=== PATIENT | female | born 1955 | race Caucasian/White ===

== ENCOUNTER 2017-04-29 19:00 | Emergency (ER) | payer BC ==
[~2017-04-29] VITALS: Ht 163.8 cm; Wt 59.5 kg
[~2017-04-29 19:00] MED LIST: AMLODIPINE5 MG PO; HYDROCHLORO25 MG/TAB PO; LIPITOR40 M1 PO; METFORMIN500 M2 PO; ZESTRIL40 MG PO
[2017-04-29] MEDS ORDERED: ASPIRIN 81 LOW81 MG PO (19:27)
[2017-04-29] MEDS ORDERED: FISH OIL1000 MG PO (19:27)
[2017-04-29 19:57] LABS: HEMATOCRIT 39.3 % (37.0-47.0); HEMOGLOBIN 13.3 g/dl (12.0-16.0); IMMATURE GRANULOCYTES 0.2 % (0.0-1.0); MEAN CELL VOLUME 91.8 fL CALC (80.0-100.0); MEAN CORPUSCULAR HGB 31.1 pG CALC (26.0-32.0); MEAN CORPUSCULAR HGB CONC 33.8 g/L CALC (32.0-36.0); NEUT# 4.82 thou/uL (2.00-7.15); RED BLOOD COUNT 4.28 mill/uL (4.20-5.60); RED CELL DISTRI WIDTH 12.6 % (11.5-15.5)
[2017-04-29 19:59] LABS: URINE BILIRUBIN - DIPSTICK NEGATIVE (NEGATIVE); URINE BLOOD DIPSTICK NEGATIVE (NEGATIVE); URINE CLARITY CLEAR; URINE COLOR YELLOW; URINE GLUCOSE - DIPSTICK NEGATIVE (NEGATIVE); URINE KETONE NEGATIVE (NEGATIVE); URINE LEUK ESTERASE NEGATIVE (NEGATIVE); URINE NITRITE - DIPSTICK NEGATIVE (Negative); URINE PH 5.5 (4.5-8.0); URINE PROTEIN - DIPSTICK NEGATIVE (NEG-TRACE); URINE SPECIFIC GRAVITY <=1.005; URINE UROBILINOGEN - DIPSTICK 0.2 E.U./dL (0.2)
[2017-04-29 20:25] LABS: ALBUMIN 4.8 g/dL (3.2-5.0); ALKALINE PHOSPHATASE 100 u/l (38-126); AMYLASE 33 u/l (30-110); ANION GAP 17 (6-22 (CALC)); BILIRUBIN, TOTAL 0.8 mg/dL (0.0-1.4); BUN 18 mg/dL (8-23); BUN/CREATININE RATIO 17 (12-20 (CALC)); CALCIUM 10.4 mg/dL (8.4-10.2); CARBON DIOXIDE 28 mmol/l (22-30); CHLORIDE 102 mmol/l (95-108); CREATININE 1.1 mg/dL (0.5-1.0); GFR 50 ML/MIN (>=60 (CALC)); GFR FOR AFR.AMER. > 60 ML/MIN (>=60 (CALC)); GLUCOSE 85 mg/dL (82-115); LIPASE 114 u/l (23-300); POTASSIUM 4.5 mmol/l (3.5-5.1); SGOT/AST 25 u/l (9-36); SGPT/ALT 41 u/l (11-66); SODIUM 143 mmol/l (137-146); TOTAL PROTEIN 7.5 g/dL (6.3-8.2)
[2017-04-29 20:36] LABS: MYOGLOBIN 42 ng/mL (0 - 62)
[2017-04-29] MEDS ORDERED: ULTRAM50 M1 PO (23:18)
[2017-04-29] MEDS ORDERED: PREVACID30 M3 PO (23:18)
[2017-04-29] MEDS ORDERED: PROTONIX40 MG PO (23:18)
[2017-04-29] MEDS ORDERED: ZOFRAN ODT4 MG PO (23:20)
[2017-04-29 23:35] VITALS: BP 128/64
== END 2017-04-29 23:35 | disposition home or self-care (01) | DRG 392 ==
LOC: ED 19:00
PROVIDERS: Emergency Medicine
DX: R10.11 Right upper quadrant pain (principal); K29.70 Gastritis, unspecified, without bleeding; I10 Essential (primary) hypertension; E11.9 Type 2 diabetes mellitus without complications; E78.5 Hyperlipidemia, unspecified
CPT/HCPCS: Q9967; S0164

== ENCOUNTER 2018-08-30 09:55 | Emergency (ER) | payer OTHER, MEDICARE ==
[~2018-08-30] VITALS: Ht 163.8 cm; Wt 60.0 kg
[~2018-08-30 09:55] MED LIST changes: +ASPIRIN 81 LOW81 MG PO; +FISH OIL1000 MG PO; +OMEPRAZOLE20 MG PO; +PREVACID30 M3 PO; +PROTONIX40 MG PO; +ULTRAM50 M1 PO; +ZOFRAN ODT4 MG PO
[2018-08-30] MEDS ORDERED: TORADOL PO (12:25)
[2018-08-30 12:47] VITALS: BP 117/71
== END 2018-08-30 12:47 | disposition home or self-care (01) | DRG 563 ==
LOC: ED 09:55
DX: S66.912A Strain of unspecified muscle, fascia and tendon at wrist and hand level, left hand, initial encounter (principal); E11.9 Type 2 diabetes mellitus without complications; I10 Essential (primary) hypertension; E78.5 Hyperlipidemia, unspecified; W19.XXXA Unspecified fall, initial encounter; Y93.89 Activity, other specified; Y92.89 Other specified places as the place of occurrence of the external cause; Y99.0 Civilian activity done for income or pay

== ENCOUNTER 2020-05-26 07:36 | Day surgery (SDC) | payer MEDICARE ==
[~2020-05-26] VITALS: Ht 162.6 cm; Wt 63.5 kg
[~2020-05-26 07:36] MED LIST changes: +CLONIDINE0.1 MG PO; +DICLOFENAC SODI75 MG PO; +NORVASC5 M1 PO; +TORADOL PO; +VISION FORMULA1 TAB PO; +VITAMIN D PO
[2020-05-26 13:27] VITALS: BP 158/70
== END 2020-05-26 11:10 | disposition home or self-care (01) ==
LOC: ENDO 07:36 → ORM 10:15 → ENDO 11:10
PROVIDERS: ATTEND Surgery
PROC: 0DB78ZX Excision of Stomach, Pylorus, Via Natural or Artificial Opening Endoscopic, Diagnostic (ICD-10-PCS; principal; 2020-05-26)
DX: K29.70 Gastritis, unspecified, without bleeding (principal); Z20.828 Contact with and (suspected) exposure to other viral communicable diseases

== ENCOUNTER 2020-06-16 09:11 | Day surgery (SDC) | payer MEDICARE ==
[~2020-06-16] VITALS: Ht 162.6 cm; Wt 63.5 kg
[2020-06-16] MEDS ORDERED: PERCOCET 5/325M1 TAB PO (13:09)
[2020-06-16 14:55] VITALS: BP 130/60
== END 2020-06-16 15:16 | disposition home or self-care (01) ==
LOC: ORM 09:11
PROVIDERS: ATTEND Surgery
PROC: 0FT44ZZ Resection of Gallbladder, Percutaneous Endoscopic Approach (ICD-10-PCS; principal; 2020-06-16)
PROC: 0F5 Hepatobiliary System and Pancreas, Destruction (ICD-10-PCS; 2020-06-16)
DX: K81.1 Chronic cholecystitis (principal); K76.89 Other specified diseases of liver; I10 Essential (primary) hypertension; E11.9 Type 2 diabetes mellitus without complications; Z79.84 Long term (current) use of oral hypoglycemic drugs; Z20.828 Contact with and (suspected) exposure to other viral communicable diseases
CPT/HCPCS: J0131; J1100; J1610; Q9967

== ENCOUNTER 2021-02-04 08:52 | Observation (INO) | payer MEDICARE ==
[~2021-02-04 08:52] MED LIST changes: +PERCOCET 5/325M1 TAB PO
[2021-02-04 10:06] LABS: IMMATURE GRANULOCYTES 0.3 % (0.0-5.0); MEAN CELL VOLUME 92.7 fL CALC (80.0-100.0); MEAN CORPUSCULAR HGB 30.1 pG CALC (26.0-32.0); MEAN CORPUSCULAR HGB CONC 32.4 g/dL CAL (32.0-36.0); NEUT# 2.25 thou/uL (2.00-7.15); RED BLOOD COUNT 3.99 mill/uL (4.20-5.60); RED CELL DISTRI WIDTH 14.2 % (11.5-15.5)
[2021-02-04 10:33] LABS: ALBUMIN 4.2 g/dL (3.2-5.0); ALKALINE PHOSPHATASE 117 u/l (38-126); ANION GAP 14 (6-22 (CALC)); BILIRUBIN, TOTAL 0.5 mg/dL (0.0-1.4); BUN 10 mg/dL (8-23); BUN/CREATININE RATIO 11 (12-20 (CALC)); CARBON DIOXIDE 27 mmol/l (22-30); CHLORIDE 101 mmol/l (95-108); CREATININE 0.9 mg/dL (0.5-1.0); GFR > 60 ML/MIN (>=60 (CALC)); GFR FOR AFR.AMER. > 60 ML/MIN (>=60 (CALC)); POTASSIUM 4.2 mmol/l (3.5-5.1); SGOT/AST 28 u/l (9-36); SODIUM 138 mmol/l (137-146); TOTAL PROTEIN 7.2 g/dL (6.3-8.2)
[2021-02-04 11:42] LABS: ACT PARTIAL THROMBO TIME 27.8 SECONDS (20.0-32.5); PROTHROMBIN TIME 10.4 SECONDS (9.0-12.5)
[2021-02-04 15:10] VITALS: BP 116/48
[2021-02-04 19:00] VITALS: BP 145/61
[2021-02-05] VITALS: BP 110/50
[2021-02-05 04:30] VITALS: BP 139/55
[2021-02-05 05:38] LABS: HEMOGLOBIN 11.2 g/dl (12.0-16.0); MEAN CELL VOLUME 93.6 fL CALC (80.0-100.0); MEAN CORPUSCULAR HGB 29.9 pG CALC (26.0-32.0); NEUT# 2.2 thou/uL (2.00-7.15); RED BLOOD COUNT 3.74 mill/uL (4.20-5.60)
[2021-02-05 06:23] LABS: ALBUMIN 3.5 g/dL (3.2-5.0); ALKALINE PHOSPHATASE 93 u/l (38-126); ANION GAP 13 (6-22 (CALC)); BILIRUBIN, TOTAL 0.3 mg/dL (0.0-1.4); BUN 14 mg/dL (8-23); BUN/CREATININE RATIO 18 (12-20 (CALC)); C-REACTIVE PROTEIN < 0.5 mg/dL (0-0.9); CARBON DIOXIDE 26 mmol/l (22-30); CHLORIDE 105 mmol/l (95-108); CREATININE 0.8 mg/dL (0.5-1.0); GFR > 60 ML/MIN (>=60 (CALC)); GFR FOR AFR.AMER. > 60 ML/MIN (>=60 (CALC)); POTASSIUM 4.5 mmol/l (3.5-5.1); SGOT/AST 26 u/l (9-36); SODIUM 140 mmol/l (137-146); TOTAL PROTEIN 6.1 g/dL (6.3-8.2)
[2021-02-05 07:23] VITALS: BP 145/58
[2021-02-05] MEDS ORDERED: ZITHROMAX250 MG PO (10:30)
[2021-02-05] MEDS ORDERED: DECADRON6 MG PO (10:32)
[2021-02-05] MEDS ORDERED: OMNICEF300 M1 PO (10:32)
[2021-02-05] MEDS ORDERED: TAM75CAP PO (10:33)
[2021-02-05 10:48] VITALS: BP 141/66
== END 2021-02-05 15:52 | disposition home or self-care (01) ==
LOC: ED 08:52 → ED-I 13:17 → ED 13:27 → MS2 13:28
PROVIDERS: Nurse Practitioner; ADMIT Hospitalist; ATTEND Hospitalist
PROC: XW033E5 Introduction of Remdesivir Anti-infective into Peripheral Vein, Percutaneous Approach, New Technology Group 5 (ICD-10-PCS; principal; 2021-02-04)
DX: U07.1 COVID-19 (principal); J12.82 Pneumonia due to coronavirus disease 2019; J10.1 Influenza due to other identified influenza virus with other respiratory manifestations; R09.02 Hypoxemia; I10 Essential (primary) hypertension; E11.9 Type 2 diabetes mellitus without complications; E78.5 Hyperlipidemia, unspecified; K21.9 Gastro-esophageal reflux disease without esophagitis; Z79.84 Long term (current) use of oral hypoglycemic drugs
CPT/HCPCS: G0378; J1650; Q9967

== ENCOUNTER 2021-02-15 09:34 | Inpatient (IN) | payer MEDICARE ==
[~2021-02-15] VITALS: Ht 162.6 cm; Wt 58.0 kg
[~2021-02-15 09:34] MED LIST changes: +DECADRON6 MG PO; +OMNICEF300 M1 PO; +TAM75CAP PO; +ZITHROMAX250 MG PO
--- NOTE | 2021-02-15 09:45 | NUR ---
TO ROOM FOR TRIAGE
[2021-02-15 10:33] LABS: HEMATOCRIT 39.2 % (37.0-47.0); HEMOGLOBIN 12.7 g/dl (12.0-16.0); IMMATURE GRANULOCYTES 1.2 % (0.0-5.0); MEAN CELL VOLUME 90.3 fL CALC (80.0-100.0); MEAN CORPUSCULAR HGB 29.3 pG CALC (26.0-32.0); MEAN CORPUSCULAR HGB CONC 32.4 g/dL CAL (32.0-36.0); NEUT# 6.59 thou/uL (2.00-7.15); RED BLOOD COUNT 4.34 mill/uL (4.20-5.60); RED CELL DISTRI WIDTH 13.8 % (11.5-15.5)
[2021-02-15 10:42] LABS: PROTHROMBIN TIME 10.3 SECONDS (9.0-12.5)
[2021-02-15 10:43] LABS: ALBUMIN 3.4 g/dL (3.2-5.0); CREATININE 1.1 mg/dL (0.5-1.0); POTASSIUM 3.9 mmol/l (3.5-5.1); TOTAL PROTEIN 6.2 g/dL (6.3-8.2)
[2021-02-15 10:45] LABS: BILIRUBIN, TOTAL 1.1 mg/dL (0.0-1.4)
--- NOTE | 2021-02-15 11:00 | NUR ---
PT IS RESTING IN BED ON 2L OXYGEN NC, CALL LIGHT IN REACH
[2021-02-15 11:34] LABS: C-REACTIVE PROTEIN 8.8 mg/dL (0-0.9)
--- NOTE | 2021-02-15 12:00 | NUR ---
PT RESTING AWAITING RESULTS
--- NOTE | 2021-02-15 13:00 | NUR ---
PT ON 2LNC VSS AND NO COMPLAINTS
--- NOTE | 2021-02-15 13:49 | NUR ---
PT AWAITING BED ASSIGNMENT, RESTING
--- NOTE | 2021-02-15 14:50 | NUR ---
PT RESTING IN BED
--- NOTE | 2021-02-15 16:00 | NUR ---
PT HAS CALL LIGHT IN REACH, SLEEPING COMFORTABLY
--- NOTE | 2021-02-15 17:00 | NUR ---
PT RESTING, AWAITING BED ASSIGNMENT
[2021-02-15 19:48] VITALS: BP 144/67
[2021-02-15 19:59] LABS: URINE BILIRUBIN - DIPSTICK NEGATIVE (NEGATIVE); URINE BLOOD DIPSTICK NEGATIVE (NEGATIVE); URINE COLOR YELLOW; URINE GLUCOSE - DIPSTICK 250 mg/dL (NEGATIVE); URINE KETONE NEGATIVE (NEGATIVE); URINE LEUK ESTERASE NEGATIVE (NEGATIVE); URINE PROTEIN - DIPSTICK NEGATIVE (NEG-TRACE); URINE SPECIFIC GRAVITY 1.025; URINE UROBILINOGEN - DIPSTICK 0.2 E.U./dL (0.2)
[2021-02-15 20:08] LABS: URINE NITRITE - DIPSTICK NEGATIVE (Negative)
--- NOTE | 2021-02-15 20:30 | NUR ---
PATIENT ADMITTED TO FLOOR/ROOM 285 VIA WHEELCHAIR WITH OXYGEN AND ESCORT FROM ED IN STABLE CONDITION. ORIENTED TO ROOM AND CALLLIGHT SYSTEM. DINNER PROVIDED. DENIES PAIN. RESPIRATIONS EVEN AND UNLABORED. SITTING SEMI-CORNEJO. TELEMETRY APPLIED WHEN BECAME AVAILABLE. PATIENT HAS AUDIBLE MURMUR. HR REGULAR. VAD #20 LAC S/L. SITE CDI. O2 2L N/C IN PLACE. SKIN INTACT. ASSESSMENT COMPLETED AND CHARTED. BED IN LOW POSITION. CALL LIGHT WITHIN REACH.
[2021-02-15 23:45] VITALS: BP 112/51
--- NOTE | 2021-02-16 01:41 | NUR ---
RESTING WITH EYES CLOSED. RESPRIATIONS EVEN AND UNLABORED. O2 VIA N/C IN PLACE.
[2021-02-16 04:00] VITALS: BP 142/71
--- NOTE | 2021-02-16 04:28 | NUR ---
RESTING QUIETLY. NO COMPLAINTS.
[2021-02-16 06:04] LABS: HEMATOCRIT 37.4 % (37.0-47.0); HEMOGLOBIN 12.4 g/dl (12.0-16.0); IMMATURE GRANULOCYTES 0.8 % (0.0-5.0); MEAN CORPUSCULAR HGB 30.2 pG CALC (26.0-32.0); MEAN CORPUSCULAR HGB CONC 33.2 g/dL CAL (32.0-36.0); NEUT# 7.95 thou/uL (2.00-7.15); RED BLOOD COUNT 4.11 mill/uL (4.20-5.60); RED CELL DISTRI WIDTH 13.8 % (11.5-15.5)
[2021-02-16 06:32] LABS: ALBUMIN 3.3 g/dL (3.2-5.0); ALKALINE PHOSPHATASE 99 u/l (38-126); ANION GAP 15 (6-22 (CALC)); BUN 22 mg/dL (8-23); BUN/CREATININE RATIO 23 (12-20 (CALC)); CARBON DIOXIDE 24 mmol/l (22-30); CHLORIDE 101 mmol/l (95-108); GFR 55 ML/MIN (>=60 (CALC)); GFR FOR AFR.AMER. > 60 ML/MIN (>=60 (CALC)); POTASSIUM 3.9 mmol/l (3.5-5.1); SGOT/AST 24 u/l (9-36); SODIUM 136 mmol/l (137-146); TOTAL PROTEIN 6.1 g/dL (6.3-8.2)
[2021-02-16 06:46] LABS: BILIRUBIN, TOTAL 0.6 mg/dL (0.0-1.4); C-REACTIVE PROTEIN 11.4 mg/dL (0-0.9)
--- NOTE | 2021-02-16 07:10 | NUR ---
REPORT RECEIVED FROM CAMACHORN
--- NOTE | 2021-02-16 09:00 | NUR ---
PT RESTING IN SEMI FOWLERS POSITION,A&O X3;VS OBTAINED AND ASSESSMENT COMPLETED, CURRENT TEMP 101.0;D,CARTEE ANRP NOTIFIED;PT DENIES ANY CURRENT PAIN OR DISCOMFORTS,PAIN SCALE AND REPORTING EDUCATED;RESPIRATIONS SHALLOW ON O2 @ 2L VIA NC,CLEAR/DIMINISHED LUNG SOUNDS WITH NON-PRODUCTIVE COUGH;ABDOMEN SOFT ON PALPATION AND ACTIVE IN ALL 4 QUADRNATS;STRONG PEDAL PULSES;SKIN INTACT;TELE MONITORING IN PLACE;#20G TO LAC FLUSHED AND PATENT,SITE APPEARS HEALTHY;ACCUCHECK 143, NO COVERAGE NEEDED;PT REMAINS IN AIR/CONTACT PRECAUTIONS DUE TO COVID19 DX; PT DENIES ANY ADDITIONAL NEEDS AND IS ENCOURAGED TO CALL FOR ASSISTANCE IF NEEDED;FALL PRECAUTIONS IN PLACE WITH BED IN THE LOWEST POSITION AND CALL LIGHT IN REACH;WILL CONTINUE TO MONITOR
[2021-02-16 09:02] VITALS: BP 153/63
--- NOTE | 2021-02-16 10:00 | NUR ---
PT MEDICATED WITH PRN ROBITUSSIN PO PER REQUEST FOR COUGH AND TYLENOL 650MG PO FOR TEMP 101.0;WILL CONTINUE TO MONITOR FOR EFFECTIVENESS
[2021-02-16 10:30] VITALS: BP 154/79
--- NOTE | 2021-02-16 10:54 | NUR ---
TEMP RE-CHECK 100.9
--- NOTE | 2021-02-16 11:07 | NUR ---
TEMP RE-CHECK 99.1
--- NOTE | 2021-02-16 11:16 | NUR ---
AT BEDSIDE DISCUSSING POC.
--- NOTE | 2021-02-16 11:55 | NUR ---
PT RESTING IN SEMI FOWLERS POSITION;RESPIRATIONS SHALLOW ON O2 @ 2L VIA NC;PT DENIES ANY CURRENT PAIN OR DISCOMFORTS;TELE MONITORING IN PLACE;#20G TO LAC INFUSING ABX WITH EASE;ACCUCHECK 215,PT COVERED WITH SLIDING SCALE INSULIN PER ORDER;PT DENIES ANY ADDITIONAL NEEDS;ENCOURAGED TO CALL FOR ASSISTANCE IF NEEDED;FALL PRECAUTIONS IN PLACE WITH CALL LIGHT IN REACH;WILL CONTINUE TO MONITOR
[2021-02-16 15:40] VITALS: BP 111/52
--- NOTE | 2021-02-16 17:20 | NUR ---
PT RESTING IN SEMI FOWLERS POSITION WATCHING TV;RESPIRATIONS EVEN AND UNLABORED ON O2 @ 2L VIA NC;PT DENIES ANY CURRENT PAIN OR DISCOMFORTS;TELE MONITORING IN PLACE;IV SITE PATENT;ACCUCHECK 288, PT COVERED WITH SLIDING SCALE INSULIN PER ORDER;PT DENIES ANY ADDITIONAL NEEDS AND IS ENCOURAGED TO CALL FOR ASSISTANCE IF NEEDED;CALL LIGHT IN REACH;WILL CONTINUE TO MONITOR
[2021-02-16 19:00] VITALS: BP 126/55
--- NOTE | 2021-02-16 22:03 | NUR ---
PATIENT SEMI-FOWLERS. VAD DISLODGED AT BEGINNING OF SHIFT. NEW VAD #20 LH X2 ATTEMPTS. TOLERATED WELL. RESPIRATIONS NONLABORED. ON O2 VIA N/C DENIES PAIN. ON TELEMETRY. ASSESSMENT COMPLETED AND CHARTED.
[2021-02-17] VITALS: BP 155/87
--- NOTE | 2021-02-17 00:26 | NUR ---
RESTING QUIETLY. RESPIRATIONS EVEN. ON TELEMETRY. NO COMPLAINTS.
[2021-02-17 04:00] VITALS: BP 140/60
--- NOTE | 2021-02-17 04:13 | NUR ---
NO COMPLAINTS. RESPIRATIONS EVEN.
[2021-02-17 05:58] LABS: HEMATOCRIT 33.2 % (37.0-47.0); HEMOGLOBIN 11.1 g/dl (12.0-16.0); IMMATURE GRANULOCYTES 0.3 % (0.0-5.0); MEAN CORPUSCULAR HGB 30.1 pG CALC (26.0-32.0); MEAN CORPUSCULAR HGB CONC 33.4 g/dL CAL (32.0-36.0); NEUT# 4.67 thou/uL (2.00-7.15); RED BLOOD COUNT 3.69 mill/uL (4.20-5.60); RED CELL DISTRI WIDTH 13.7 % (11.5-15.5)
[2021-02-17 06:05] LABS: ALBUMIN 2.8 g/dL (3.2-5.0); ALKALINE PHOSPHATASE 89 u/l (38-126); ANION GAP 11 (6-22 (CALC)); BUN 23 mg/dL (8-23); BUN/CREATININE RATIO 30 (12-20 (CALC)); CARBON DIOXIDE 25 mmol/l (22-30); CHLORIDE 105 mmol/l (95-108); CREATININE 0.8 mg/dL (0.5-1.0); GFR > 60 ML/MIN (>=60 (CALC)); GFR FOR AFR.AMER. > 60 ML/MIN (>=60 (CALC)); POTASSIUM 4.2 mmol/l (3.5-5.1); SGOT/AST 19 u/l (9-36); SODIUM 136 mmol/l (137-146); TOTAL PROTEIN 5.4 g/dL (6.3-8.2)
[2021-02-17 06:25] LABS: BILIRUBIN, TOTAL 0.3 mg/dL (0.0-1.4)
--- NOTE | 2021-02-17 07:00 | NUR ---
REPORT RECEIVED FROM CAMACHORN
[2021-02-17 08:25] VITALS: BP 160/79
--- NOTE | 2021-02-17 08:25 | NUR ---
PT RESTING IN SEMI FOWLERS POSITION,A&O X3;VS OBTAINED AND ASSESSMENT COMPLETED;PT DENIES ANY CURRENT PAIN OR DISCOMFORTS,PAIN SCALE AND REPORTING EDUCATED;RESPIRATIONS EVEN AND UNLABORED ON O2 @ 2L VIA NC, CLEAR/DIMINISHED LUNG SOUNDS WITH NON-PRODUCTIVE COUGH NOTED;PT MEDICATED WITH PRN ROBITUSSIN PER REQUEST;ABDOMEN SOFT ON PALPATION AND ACTIVE IN ALL 4 QUADRANTS;STRONG PEDAL PULSES;SKIN INTACT;TELE MONITORING IN PLACE;#20G TO LH FLUSHED AND PATENT;ABX STARTED AT THIS TIME;ACCUCHECK 173, PT COVERED WITH SLIDING SCALE INSULIN PER ORDER;PT REMAINS IN AIR/CONTACT PRECAUTIONS DUE TO COVID19 DX;PT DENIES ANY ADDITIONAL NEEDS AND IS ENCOURAGED TO CALL FOR ASSISTANCE IF NEEDED;CALL LIGHT IN REACH;WILL CONTINUE TO MONITOR
[2021-02-17 11:10] VITALS: BP 146/78
--- NOTE | 2021-02-17 11:35 | NUR ---
AT BEDSIDE DISCUSSING POC
--- NOTE | 2021-02-17 11:40 | NUR ---
PT RESTING IN SEMI FOWLERS POSITION;RESPIRATIONS EVEN AND UNLABORED ON O2 @ 2L VIA NC;PT DENIES ANY CURRENT PAIN OR DISCOMFORTS;TELE MONITORING IN PLACE;IV SITE PATENT;ACCUCHECK 273, PT COVERED WITH SLIDING SCALE INSULIN PER ORDER;PT DENIES ANY ADDITIONAL NEEDS AND IS ENCOURAGED TO CALL FOR ASSISTANCE IF NEEDED;CALL LIGHT IN REACH;WILL CONTINUE TO MONITOR
--- NOTE | 2021-02-17 16:00 | NUR ---
PT RESTING IN SEMI FOWLERS POSITION;RESPIRATIONS EVEN AND UNLABORED ON O2 @ 2L VIA NC;PT DENIES ANY CURRENT PAIN OR NEEDS;IV SITE PATENT;TELE MONITORING IN PLACE;PT ENCOURAGED TO CALL FOR ASSISTANCE IF NEEDED;CALL LIGHT IN REACH;WILL CONTINUE TO MONITOR
[2021-02-17 16:24] VITALS: BP 159/76
--- NOTE | 2021-02-17 20:00 | NUR ---
PATIENT SEMI FOWLERS, PLEASANT MOOD. ALERT AND ORIENTED X4. DENIES PAIN. RESPIRATIONS EVEN AND UNLABORED. LUNG SOUNDS CLEAR WITH CRACKLES NOTED AT THE BASES. HR REG. ON TELEMETRY. BS+. NO COMPLAINTS. VAD S/L, FLUSHED WITHOUT DIFFICULTY. ASSESSMENT COMPLETED AND CHARTED. BED IN LOW POSITION. CALL LIGHT WITHIN REACH.
[2021-02-17 20:15] VITALS: BP 173/80
[2021-02-18 00:42] VITALS: BP 147/63
--- NOTE | 2021-02-18 01:56 | NUR ---
ROBITUSSIN GIVEN FOR COUGH. RESTING QUIETLY. RESPIRATIONS EVEN AND UNLABORED.
--- NOTE | 2021-02-18 04:51 | NUR ---
RESTING QUIETLY. NO COMPLAINTS. NO ACUTE DISTRESS.
[2021-02-18 05:04] VITALS: BP 153/68
[2021-02-18 05:17] LABS: HEMATOCRIT 34.1 % (37.0-47.0); HEMOGLOBIN 11.1 g/dl (12.0-16.0); IMMATURE GRANULOCYTES 0.4 % (0.0-5.0); MEAN CELL VOLUME 90.2 fL CALC (80.0-100.0); MEAN CORPUSCULAR HGB 29.4 pG CALC (26.0-32.0); MEAN CORPUSCULAR HGB CONC 32.6 g/dL CAL (32.0-36.0); NEUT# 4.02 thou/uL (2.00-7.15); RED BLOOD COUNT 3.78 mill/uL (4.20-5.60); RED CELL DISTRI WIDTH 13.6 % (11.5-15.5)
[2021-02-18 05:44] LABS: ALBUMIN 2.8 g/dL (3.2-5.0); ALKALINE PHOSPHATASE 93 u/l (38-126); ANION GAP 11 (6-22 (CALC)); BILIRUBIN, TOTAL 0.2 mg/dL (0.0-1.4); BUN 23 mg/dL (8-23); BUN/CREATININE RATIO 30 (12-20 (CALC)); C-REACTIVE PROTEIN 5.2 mg/dL (0-0.9); CARBON DIOXIDE 25 mmol/l (22-30); CHLORIDE 105 mmol/l (95-108); CREATININE 0.8 mg/dL (0.5-1.0); GFR > 60 ML/MIN (>=60 (CALC)); GFR FOR AFR.AMER. > 60 ML/MIN (>=60 (CALC)); POTASSIUM 4.4 mmol/l (3.5-5.1); SGOT/AST 19 u/l (9-36); SODIUM 137 mmol/l (137-146); TOTAL PROTEIN 5.4 g/dL (6.3-8.2)
[2021-02-18 07:15] VITALS: BP 155/68
--- NOTE | 2021-02-18 07:15 | NUR ---
PATIENT RESTING IN BED AT THIS TIME. O2 ON AT 2 LITERS SPO2 IS 95%. PATIENT DENIES ANY PAIN OR NEEDS AT THIS TIME. PATIENT HAS TELE IN PLACE AND BEING MONITORED BY ED. PATIENTS LUNGS FIELS ARE CLEAR AT THIS TIME. AND PATIENT DOES HAVE PRODUCTIVE COUGH WITH SCANT CLEAR SPUTUM. [employer]WN SERVICE MANAGER DONE SEE INTERVENTIONS. SIDERAILS ARE UP X 2 CALL LIGHT WITHIN REACH.
[2021-02-18 11:11] VITALS: BP 155/71
--- NOTE | 2021-02-18 11:24 | NUR ---
PATIENT LAYING IN BED AT THIS TIME. PATIENT IS NOW ON ROOM AIR AND SPO2 IS 95% AT THIS TIME. PATIENT DOES EXHIBIT A COUGH WITH SCANT AMOUNT OF CLEAR SPUTUM. PATIENT DENIES PAIN OR NEEDS AND SIDERAILS ARE UP X 2 CALL LIGHT WITHIN REACH.
[2021-02-18 15:00] VITALS: BP 163/62
[2021-02-18] MEDS ORDERED: ASPIRIN REGULA325 M1 PO (15:27)
[2021-02-18] MEDS ORDERED: DEXAMETHASON6 MG PO (15:27)
[2021-02-18] MEDS ORDERED: ZITHROMAX250 MG PO (15:28)
[2021-02-18] MEDS ORDERED: HUMALOG KW100 UNIT/M SC (15:28)
--- NOTE | 2021-02-18 16:12 | NUR ---
PATIENT D/C AT THIS TIME PATIENT VERBALIZES UNDERSTANDING OF D/C INSTRUCTIONS. TELE MONITOR REMOVED ED NOTIFIED. IV REMOVED AND TIP INTACT.
--- NOTE | 2021-02-18 16:25 | NUR ---
Discharge instructions given. Patient verbalizes understanding of same. Discharged in stable condition via Wheelchair to Home with family. All belongings sent with pt.
== END 2021-02-18 16:28 | disposition home or self-care (01) | DRG 177 ==
LOC: ED 09:34 → ED-I 11:23 → ED 12:24 → ED-I 12:25 → MS2 12:25
PROVIDERS: Family Medicine; Nurse Practitioner; ADMIT Hospitalist; ATTEND Hospitalist
PROC: XW033E5 Introduction of Remdesivir Anti-infective into Peripheral Vein, Percutaneous Approach, New Technology Group 5 (ICD-10-PCS; principal; 2021-02-15)
DX: U07.1 COVID-19 (principal); J12.82 Pneumonia due to coronavirus disease 2019; J96.01 Acute respiratory failure with hypoxia; I10 Essential (primary) hypertension; E11.9 Type 2 diabetes mellitus without complications; M19.90 Unspecified osteoarthritis, unspecified site; Z79.84 Long term (current) use of oral hypoglycemic drugs
CPT/HCPCS: G0378; J1650

== ENCOUNTER 2022-03-02 14:31 | Observation (INO) | payer MEDICARE ==
[~2022-03-02] VITALS: Ht 162.6 cm; Wt 62.7 kg
[2022-03-02] VITALS (20 sets, daily range): BP systolic 116–181; BP diastolic 41–112
[~2022-03-02 14:31] MED LIST changes: +ASPIRIN REGULA325 M1 PO; +DEXAMETHASON6 MG PO; +HUMALOG KW100 UNIT/M SC
[2022-03-02 14:55] LABS: IMMATURE GRANULOCYTES 0.1 % (0.0-5.0); MEAN CORPUSCULAR HGB 19.6 pG CALC (26.0-32.0); MEAN CORPUSCULAR HGB CONC 28.1 g/dL CAL (32.0-36.0); NEUT# 4.61 thou/uL (2.00-7.15); RED BLOOD COUNT 3.27 mill/uL (4.20-5.60); RED CELL DISTRI WIDTH 17.5 % (11.5-15.5)
[2022-03-02] MEDS ORDERED: METFORMIN500 M2 PO (14:58)
[2022-03-02 14:59] LABS: HEMATOCRIT 22.8 % (37.0-47.0); MEAN CELL VOLUME 69.7 fL CALC (80.0-100.0)
[2022-03-02] MEDS ORDERED: CLONIDINE0.1 MG PO (14:59)
[2022-03-02 15:00] LABS: HEMOGLOBIN 6.4 g/dl (12.0-16.0)
[2022-03-02] MEDS ORDERED: VENTOLIN HF1 IN (15:06)
[2022-03-02 15:13] LABS: PROTHROMBIN TIME 10.1 SECONDS (9.0-12.5)
[2022-03-02 15:17] LABS: ALKALINE PHOSPHATASE 98 u/l (38-126); ANION GAP 16 (6-22 (CALC)); BUN 13 mg/dL (8-23); BUN/CREATININE RATIO 15 (12-20 (CALC)); CARBON DIOXIDE 21 mmol/l (22-30); CHLORIDE 109 mmol/l (95-108); CREATININE 0.9 mg/dL (0.5-1.0); GFR FOR AFR.AMER. > 60 ML/MIN (>=60 (CALC)); GFR OTHER RACES > 60 ML/MIN (>=60 (CALC)); POTASSIUM 4.6 mmol/l (3.5-5.1); SGOT/AST 28 u/l (9-36); SODIUM 141 mmol/l (137-146)
[2022-03-02 15:18] LABS: ALBUMIN 4.4 g/dL (3.2-5.0); BILIRUBIN, TOTAL 0.6 mg/dL (0.0-1.4); TOTAL PROTEIN 7.1 g/dL (6.3-8.2)
[2022-03-02 15:28] LABS: MYOGLOBIN 44 ng/mL (0 - 62)
[2022-03-02 19:43] LABS: URINE BILIRUBIN - DIPSTICK NEGATIVE (NEGATIVE); URINE BLOOD DIPSTICK NEGATIVE (NEGATIVE); URINE COLOR YELLOW; URINE GLUCOSE - DIPSTICK NEGATIVE (NEGATIVE); URINE KETONE NEGATIVE (NEGATIVE); URINE LEUK ESTERASE NEGATIVE (NEGATIVE); URINE PROTEIN - DIPSTICK NEGATIVE (NEG-TRACE); URINE UROBILINOGEN - DIPSTICK 0.2 E.U./dL (0.2)
[2022-03-02 19:44] LABS: URINE NITRITE - DIPSTICK NEGATIVE (Negative)
[2022-03-03] VITALS (10 sets, daily range): BP systolic 121–159; BP diastolic 44–53
[2022-03-03 05:39] LABS: HEMATOCRIT 25.7 % (37.0-47.0); HEMOGLOBIN 7.5 g/dl (12.0-16.0); MEAN CELL VOLUME 71.4 fL CALC (80.0-100.0); MEAN CORPUSCULAR HGB 20.8 pG CALC (26.0-32.0); MEAN CORPUSCULAR HGB CONC 29.2 g/dL CAL (32.0-36.0); RED BLOOD COUNT 3.6 mill/uL (4.20-5.60); RED CELL DISTRI WIDTH 17.8 % (11.5-15.5)
[2022-03-03 06:09] LABS: ANION GAP 12 (6-22 (CALC)); BUN 11 mg/dL (8-23); BUN/CREATININE RATIO 12 (12-20 (CALC)); CHLORIDE 107 mmol/l (95-108); CREATININE 0.9 mg/dL (0.5-1.0); GFR FOR AFR.AMER. > 60 ML/MIN (>=60 (CALC)); GFR OTHER RACES > 60 ML/MIN (>=60 (CALC)); MAGNESIUM 1.8 mg/dL (1.6-2.3); POTASSIUM 4.2 mmol/l (3.5-5.1); SODIUM 141 mmol/l (137-146)
[2022-03-03 06:13] LABS: CARBON DIOXIDE 26 mmol/l (22-30)
[2022-03-03 10:34] LABS: HEMATOCRIT 29.5 % (37.0-47.0); HEMOGLOBIN 8.9 g/dl (12.0-16.0)
[2022-03-03] MEDS ORDERED: ADVAIR DISK1 IN (11:18)
[2022-03-04 03:15] VITALS: BP 161/53
[2022-03-04 05:39] LABS: HEMATOCRIT 29.7 % (37.0-47.0); HEMOGLOBIN 8.9 g/dl (12.0-16.0); IMMATURE GRANULOCYTES 0.2 % (0.0-5.0); MEAN CELL VOLUME 72.4 fL CALC (80.0-100.0); MEAN CORPUSCULAR HGB 21.7 pG CALC (26.0-32.0); NEUT# 3.14 thou/uL (2.00-7.15); RED BLOOD COUNT 4.1 mill/uL (4.20-5.60); RED CELL DISTRI WIDTH 18.2 % (11.5-15.5)
[2022-03-04 06:00] LABS: ALBUMIN 3.8 g/dL (3.2-5.0); ALKALINE PHOSPHATASE 97 u/l (38-126); ANION GAP 13 (6-22 (CALC)); BUN 9 mg/dL (8-23); BUN/CREATININE RATIO 11 (12-20 (CALC)); CARBON DIOXIDE 26 mmol/l (22-30); CHLORIDE 106 mmol/l (95-108); CREATININE 0.9 mg/dL (0.5-1.0); GFR FOR AFR.AMER. > 60 ML/MIN (>=60 (CALC)); GFR OTHER RACES > 60 ML/MIN (>=60 (CALC)); POTASSIUM 4.2 mmol/l (3.5-5.1); SGOT/AST 26 u/l (9-36); SODIUM 140 mmol/l (137-146); TOTAL PROTEIN 6.2 g/dL (6.3-8.2)
[2022-03-04 06:26] LABS: BILIRUBIN, TOTAL 0.9 mg/dL (0.0-1.4)
[2022-03-04 06:45] VITALS: BP 149/47
[2022-03-04 09:21] VITALS: BP 148/50
[2022-03-04 09:30] VITALS: BP 152/57
[2022-03-04 09:55] VITALS: BP 155/57
== END 2022-03-04 13:48 | disposition home or self-care (01) ==
LOC: ED 14:31 → ED-I 16:10 → ED 16:28 → MS2 16:29
PROVIDERS: Nurse Practitioner; ADMIT Internal Medicine; ATTEND Internal Medicine
PROC: 30233N1 Transfusion of Nonautologous Red Blood Cells into Peripheral Vein, Percutaneous Approach (ICD-10-PCS; principal; 2022-03-02)
PROC: 30233N1 Transfusion of Nonautologous Red Blood Cells into Peripheral Vein, Percutaneous Approach (ICD-10-PCS; 2022-03-03)
PROC: 0DB68ZX Excision of Stomach, Via Natural or Artificial Opening Endoscopic, Diagnostic (ICD-10-PCS; 2022-03-04)
PROC: 0DJD8ZZ Inspection of Lower Intestinal Tract, Via Natural or Artificial Opening Endoscopic (ICD-10-PCS; 2022-03-04)
DX: D50.9 Iron deficiency anemia, unspecified (principal); K57.30 Diverticulosis of large intestine without perforation or abscess without bleeding; K44.9 Diaphragmatic hernia without obstruction or gangrene; I10 Essential (primary) hypertension; E11.9 Type 2 diabetes mellitus without complications; E78.5 Hyperlipidemia, unspecified; K21.9 Gastro-esophageal reflux disease without esophagitis; Z79.84 Long term (current) use of oral hypoglycemic drugs; Z79.4 Long term (current) use of insulin; Z20.822 Contact with and (suspected) exposure to COVID-19
CPT/HCPCS: J1756; P9016; S0164

== ENCOUNTER 2022-10-07 09:38 | Emergency (ER) | payer MEDICARE ==
[~2022-10-07] VITALS: Ht 162.6 cm; Wt 63.0 kg
[~2022-10-07 09:38] MED LIST changes: +ADVAIR DISK1 IN; +VENTOLIN HF1 IN
[2022-10-07 11:54] VITALS: BP 141/110
== END 2022-10-07 12:08 | disposition home or self-care (01) ==
LOC: ED 09:38
DX: M79.641 Pain in right hand (principal); I10 Essential (primary) hypertension; E11.9 Type 2 diabetes mellitus without complications; Z79.84 Long term (current) use of oral hypoglycemic drugs; Z79.4 Long term (current) use of insulin

== ENCOUNTER 2023-03-12 16:54 | Emergency (ER) | payer MEDICARE ==
[~2023-03-12] VITALS: Ht 162.6 cm; Wt 62.0 kg
[2023-03-12 17:12] VITALS: BP 166/64
[2023-03-12 17:35] VITALS: BP 166/53
[2023-03-12 17:46] VITALS: BP 149/55
[2023-03-12 18:00] VITALS: BP 148/64
[2023-03-12 18:08] LABS: BASO% 0.8 % (0-3); EOS% 1.4 % (0-8); HEMATOCRIT 38.9 % (37.0-47.0); HEMOGLOBIN 12.8 g/dl (12.0-16.0); IMMATURE GRANULOCYTES 0.3 % (0.0-5.0); LYMPH% 34.3 % (15-41); MEAN CELL VOLUME 92.2 fL CALC (80.0-100.0); MEAN CORPUSCULAR HGB 30.3 pG CALC (26.0-32.0); MEAN CORPUSCULAR HGB CONC 32.9 g/dL CAL (32.0-36.0); MONO% 7.5 % (2-13); NEUT# 4.02 thou/uL (2.00-7.15); NEUT% 55.7 % (42-76); RED BLOOD COUNT 4.22 mill/uL (4.20-5.60); RED CELL DISTRI WIDTH 12.4 % (11.5-15.5)
[2023-03-12 18:16] VITALS: BP 133/42
[2023-03-12 18:19] LABS: ALBUMIN 4.4 g/dL (3.2-5.0); ALKALINE PHOSPHATASE 92 u/l (38-126); AMYLASE 56 u/l (30-110); ANION GAP 13 (6-22 (CALC)); BILIRUBIN, TOTAL 0.4 mg/dL (0.02-1.3); BUN 18 mg/dL (8-23); BUN/CREATININE RATIO 19 (12-20 (CALC)); CARBON DIOXIDE 27 mmol/l (22-30); CHLORIDE 103 mmol/l (95-108); CREATININE 0.9 mg/dL (0.5-1.0); GFR FOR AFR.AMER. > 60 ML/MIN (>=60 (CALC)); GFR OTHER RACES > 60 ML/MIN (>=60 (CALC)); LIPASE 100 u/l (23-300); POTASSIUM 3.9 mmol/l (3.5-5.1); SGOT/AST 27 u/l (9-36); SODIUM 139 mmol/l (137-146); TOTAL PROTEIN 7.2 g/dL (6.3-8.2)
[2023-03-12 18:49] LABS: TSH, 3RD GENERATION 0.83 uIU/mL (0.47 - 4.68)
[2023-03-12 18:54] LABS: URINE BILIRUBIN - DIPSTICK Negative (NEGATIVE); URINE BLOOD DIPSTICK Negative (NEGATIVE); URINE GLUCOSE - DIPSTICK Negative (NEGATIVE); URINE KETONE Negative (NEGATIVE); URINE LEUK ESTERASE Negative (NEGATIVE); URINE NITRITE - DIPSTICK Negative (Negative); URINE PH 5.5 (4.5-8.0); URINE PROTEIN - DIPSTICK Negative (NEG-TRACE); URINE SPECIFIC GRAVITY 1.025; URINE UROBILINOGEN - DIPSTICK 0.2 E.U./dL (0.2)
[2023-03-12 18:55] LABS: URINE COLOR Yellow
[2023-03-12] MEDS ORDERED: SENNA-S1 TAB PO (20:24)
[2023-03-12] MEDS ORDERED: DICYCLOMINE HCL20 MG PO (20:24)
[2023-03-12 20:35] VITALS: BP 133/42
== END 2023-03-12 20:49 | disposition home or self-care (01) ==
LOC: ED 16:54
PROVIDERS: Nurse Practitioner Family
DX: K57.30 Diverticulosis of large intestine without perforation or abscess without bleeding (principal); K59.00 Constipation, unspecified; I10 Essential (primary) hypertension; E11.9 Type 2 diabetes mellitus without complications; Z79.84 Long term (current) use of oral hypoglycemic drugs; Z79.4 Long term (current) use of insulin; Z96.81 Presence of artificial skin
CPT/HCPCS: Q9967